=== PATIENT | male | born 1950 | race Caucasian/White ===

== ENCOUNTER 2017-02-12 10:24 | Emergency (ER) | payer BC ==
[2017-02-12 10:36] VITALS: RESP 16; TEMP 98.1
[2017-02-12 11:50] LABS: % IMMATURE GRANULYOCYTES 0.2 % (0.0-1.1); ABSOLUTE IMMATURE GRANULOCYTES 0.01 10^3/uL (0.00-0.10); ADD DIFF? NO; ADD MORPH? NO; ADD SCAN? NO; ATYPICAL LYMPHOCYTE FLAG 20 (0-99); FRAGMENT RBC FLAG 0 (0-99); HEMATOCRIT 43.4 % (40.0-51.0); HEMOGLOBIN 14.9 g/dL (13.7-17.5); LEFT SHIFT FLG 0 (0-99); LIPEMIA HEMOLYSIS FLAG 90 (0-99); MEAN CELL HEMOGLOBIN CONCENTR. 34.3 g/dL (32.4-36.7); MEAN CELL VOLUME 90.4 fL (81.5-99.8); MEAN PLATELET VOLUME 8.4 fL (8.7-11.7); PLATELET CLUMPS FLAG 10 (0-99); PLATELET COUNT 193 10^3/uL (150-400); RED CELL DISTRIBUTION WIDTH 13.1 % (11.5-15.2)
--- NOTE | 2017-02-12 11:56 | EDPHY ---
H & P Smoking Status: Former smoker Time Seen by Provider: 02/12/17 11:53 HPI/ROS: This 66-year-old male presenting to the emergency department reports having intermittent bilateral knee pain. States his left knee started with dull aches about 3 weeks ago and his right knee 3 days ago. Denies any traumatic injury, history of bilateral knee replacements November 2015, reports chronic knee arthritis. States he is normally very active but over the past 3 months he has been little bit more stagnant sitting at his desk and has gained some weight, recently increased his activity since the of his new grandchild. Denies any any fever no other complaints. REVIEW OF SYSTEMS: Constitutional: No fever chills Respiratory: No cough or shortness of breath Cardiac: No chest pain Musculoskeletal: Bilateral knee pain Skin: No rash Neurological: No headache or dizziness (Jennie Villatoro) Physical Exam: CONSTITUTIONAL: patient appeared well nourished, non-ill appearing and normally developed. No acute distress. Vital signs as documented. HEENT: Normocephalic atraumatic NECK: FROM without pain RESP: Non-labored resp effort EXTREMITIES: Bilateral knee no erythema no swelling nontender on palpation. FROM with some pain, but no difficulty. Positive cms intact. Ambulatory without gait disturbance SKIN: Warm and dry no rash PSYCH: Normal affect, calm, no distress, acting appropriately (Jennie Villatoro) Constitutional: Initial Vital Signs Temperature (C) 36.7 C 02/12/17 10:25 Heart Rate 60 02/12/17 10:25 Respiratory Rate 16 02/12/17 10:25 Blood Pressure 119/77 02/12/17 10:25 O2 Sat (%) 96 02/12/17 10:25 O2 Delivery Mode Room Air Allergies/Adverse Reactions: No Known Allergies Allergy (Unverified 02/12/17 10:36) Home Medications: Medication Instructions Recorded Aspirin [Aspirin 81mg (*)] 81 mg PO DAILY 02/12/17 Atorvastatin Calcium [Lipitor 20 20 mg PO DAILY 02/12/17 mg (*)] Medical Decision Making ED Course/Re-evaluation: Discussed plan of care: CBC, Chem 7 and CRP. I also discussed with patient no x-rays were needed due to no traumatic injury. And patient agree with this plan 1233: Discussed all labs with patient unremarkable. Discharge home---> stable , discussed all discharge instructions with patient. Patient verbalized understanding (Jennie Villatoro) Differential Diagnosis: Differential diagnosis considered but not limited to knee effusion, gout and septic joint (Jennie Villatoro) Other Provider: This patient was evaluated and managed by the nurse practitioner. I have reviewed the chart and agree with the findings and plan of care as documented. ( Tiffani Auguste) - Data Points Laboratory Results: Laboratory Results 02/12/17 11:45 02/12/17 11:45 Departure - Departure Disposition: Home, Routine, Self-Care Clinical Impression: Knee pain, bilateral Condition: Good Instructions: Knee Pain (ED), Arthralgia (ED) Additional Instructions: 1. I would recommend morning slow stretches, you can also slow exercise activities 2. Ibuprofen 600 mg and you can take 1 g Tylenol as needed 3. He can also use [id number] icy Hot or capsaicin cream to help with arthritis 4. Discussed all of your lab work is negative. Follow up with your primary care provider when you get back home Referrals: TALITA ANNE [Other] - As per Instructions
[2017-02-12 12:13] LABS: ANION GAP 8 mEq/L (8-16); C-REACTIVE PROTEIN < 5.0 mg/L (<10.0); CALCIUM 8.7 mg/dL (8.5-10.4); CARBON DIOXIDE 26 mEq/l (22-31); CHLORIDE 107 mEq/L (97-110); GLOMERULAR FILTRATION RATE > 60; GLUCOSE 92 mg/dL (70-100); POTASSIUM 4.6 mEq/L (3.5-5.2); SODIUM 141 mEq/L (134-144)
[2017-02-12 12:49] VITALS: BP 124/86; PULSE 62; O2SAT 94
== END 2017-02-12 12:49 | disposition home or self-care (01) ==
DX: M25.561 Pain in right knee (principal); M25.562 Pain in left knee; Z87.891 Personal history of nicotine dependence; Z79.82 Long term (current) use of aspirin